=== PATIENT | male | born 1960 | race Caucasian/White ===

== ENCOUNTER 2017-10-22 06:29 | Day surgery (SDC) | payer OTHER ==
[2017-10-21 09:27] VITALS: BMI 30.5
[~2017-10-22 06:29] MED LIST: MIDAZOLAM 2 MG/2 ML VIAL IV PRN; SCOPOLAMINE 1.5MG/72HR PATCH TRANSDERM ONE; ceFAZolin IN SWFI 2 GM/20 ML SYRINGE IVP ONE
[2017-10-22] MEDS ORDERED: ACETAMINOPHEN IV (For NPO) 1,000 MG in EMPTY BAG 1 BAG IVPB ONE (06:58)
--- NOTE | 2017-10-22 07:06 | P.GSHP ---
History of Present Illness H&P Date: 10/22/17 CHIEF COMPLAINT: Inguinal hernia, bilateral HISTORY OF PRESENT ILLNESS: The patient is a 56-year-old male who presents with a history of swelling and pain along the both groin. Now he presents for repair of his inguinal hernia. PAST MEDICAL HISTORY: Please see list. PAST SURGICAL HISTORY: Please see list. MEDICATIONS: Please see list. ALLERGIES: Please see list. SOCIAL HISTORY: No illicit drug use FAMILY HISTORY: No reports of Crohn disease or ulcerative colitis. REVIEW OF ORGAN SYSTEMS: CONSTITUTIONAL: No reports of fevers or chills. No reports of weight loss despite prior attempts. GI: Denies any blood in stools or constipation. PHYSICAL EXAM: VITAL SIGNS: Stable GENERAL: Well-developed pleasant male in no acute distress. HEENT: No scleral icterus. Extraocular movements grossly intact. Moist buccal mucosa. NECK: Supple without lymphadenopathy. CHEST: Unlabored respirations. Equal bilateral excursions. CARDIOVASCULAR: Regular rate and rhythm. Distal 2+ pulses. ABDOMEN: Soft, nondistended. No peritoneal signs. Palpable defect of the bilateral groin. MUSCULOSKELETAL: No clubbing, cyanosis, or edema. ASSESSMENT: 1. Inguinal hernia, bilateral PLAN: 1. Recommend proceeding with a robotic inguinal repair with mesh with bilateral approach. 2. Benefits and risks of surgical intervention was discussed including possibility of open technique. 3. DVT prophylaxis. 4. Antibiotic prophylaxis. 5. Will need EKG prior to his surgery. Past Medical History Past Medical History: COPD, CVA/TIA, Deep Vein Thrombosis (DVT), Renal Disease Additional Past Medical History / Comment(s): States approx. 3 years ago had a clot in his lower extremity and also had a mini stroke . Has R sided weakness. History of Any Multi-Drug Resistant Organisms: None Reported Past Surgical History: No Surgical Hx Reported Additional Past Surgical History / Comment(s): Colonoscopy only. Past Anesthesia/Blood Transfusion Reactions: No Reported Reaction Smoking Status: Current every day smoker - Past Family History Mother Family Medical History: Coronary Artery Disease (CAD) Father Family Medical History: Cancer Additional Family Medical History / Comment(s): Colon Medications and Allergies Home Medications Medication Instructions Recorded Confirmed Type Acetaminophen Tab [Tylenol Tab] 325 mg PO DAILY 10/21/17 10/22/17 History Baclofen [Lioresal] 10 mg PO TID 10/21/17 10/22/17 History Clopidogrel [Plavix] 75 mg PO DAILY 10/21/17 10/22/17 History Etodolac [Lodine] 400 mg PO DAILY 10/21/17 10/22/17 History Fish Oil/Dha/Epa [Fish Oil 1,200 1 tab PO DAILY 10/21/17 10/22/17 History mg Fish Oil] Pravastatin Sodium [Pravachol] 20 mg PO DAILY 10/21/17 10/22/17 History Allergies Allergy/AdvReac Type Severity Reaction Status Date / Time cortisone Allergy Rash/Hives Verified 10/22/17 06:48 Surgical - Exam Vital Signs Temp Pulse Resp BP Pulse Ox 98.2 F 70 18 141/77 98 10/22/17 06:58 10/22/17 06:58 10/22/17 06:58 10/22/17 06:58 10/22/17 06:58
[2017-10-22] MEDS: LACTATED RINGERS 1,000 ML IV SCH ×2 (07:31→07:38)
[2017-10-22] MEDS ORDERED: LIDOCAINE 1% 20 ML VIAL (10MG/ML) FOR IV START INTRADERMA ONE ×2 (07:31→07:39)
[2017-10-22 07:48] LABS: Basophils # (A) 0.1 k/uL (0-0.2); Basophils % (A) 1 %; Eosinophils # (A) 0.3 k/uL (0-0.7); Eosinophils % (A) 3 %; HCT 46.6 % (39.0-53.0); HGB 15.9 gm/dL (13.0-17.5); Lymphocytes # (A) 2.1 k/uL (1.0-4.8); Lymphocytes % (A) 28 %; MCH 31.2 pg (25.0-35.0); MCV 91.8 fL (80.0-100.0); Mean Platelet Volume 6.9; Monocytes # (A) 0.5 k/uL (0-1.0); Monocytes % (A) 7 %; Neutrophils # (A) 4.5 k/uL (1.3-7.7); Neutrophils % (A) 59 %; Platelet Count 263 k/uL (150-450); RBC 5.07 m/uL (4.30-5.90); RDW 12.8 % (11.5-15.5); WBC 7.6 k/uL (3.8-10.6)
[2017-10-22] MEDS: HEPARIN SODIUM,PORCINE 5,000 UNIT/ML 1 ML VIAL SQ ONE ×2 (07:51→18:37)
[2017-10-22] MEDS: ONDANSETRON 4 MG/2 ML VIAL IVP ONE ×2 (07:52→18:37)
[2017-10-22 07:59] LABS: Calcium 9.7 mg/dL (8.4-10.2); Potassium 4.5 mmol/L (3.5-5.1)
[2017-10-22] MEDS ORDERED: VECURONIUM 10 MG VIAL IV ONE (08:40)
[2017-10-22] MEDS ORDERED: GLYCOPYRROLATE 0.2 MG/ML 2 ML VIAL ONE (08:40)
[2017-10-22] MEDS ORDERED: PROPOFOL 10 MG/ML 20 ML VIAL IV ONE (08:40)
[2017-10-22] MEDS ORDERED: NEOSTIGMINE 1 MG/ML 10 ML VIAL ONE (08:40)
[2017-10-22] MEDS ORDERED: HYDROmorphone (PF) 1 MG/ML ONE (08:40)
[2017-10-22] MEDS ORDERED: LIDOCAINE 1% INJ 10MG/ML (20 ML MDV) ONE (08:40)
[2017-10-22] MEDS ORDERED: fentaNYL (PF) 50 MCG/ML 2 ML AMP ONE (08:40)
[2017-10-22] MEDS ORDERED: BUPIVACAINE (PF) 0.5% 30 ML VIAL SQ ONE (09:16)
--- NOTE | 2017-10-22 10:24 | P.OP ---
Date of Procedure: 10/22/17 Description of Procedure: SURGEON: MAXIM ALVARES MD PREOPERATIVE DIAGNOSES: 1. History of bilateral inguinal hernias 2. Ischemic cardiomyopathy 3. History of transient ischemic attack 4. Chronic obstructive pulmonary disease 5. Previous history of DVTs 6. Tobacco abuse 7. Hypertensive renal disease, stage II POSTOPERATIVE DIAGNOSES: 1. History of bilateral inguinal hernias, indirect, Nyhus type III 2. Ischemic cardiomyopathy 3. History of transient ischemic attack 4. Chronic obstructive pulmonary disease 5. Previous history of DVTs 6. Tobacco abuse 7. Hypertensive renal disease, stage II OPERATION: 1. Robotic-assisted laparoscopic da Magdalena SI bilateral inguinal hernia repair with mesh, 11.4 cm ventral light ANESTHESIA: General with local anesthetic ESTIMATED BLOOD LOSS: 5 mL. Pathology: other (Bilateral inguinal hernia sac) COMPLICATIONS: None. Condition: stable Disposition: same day Operative Findings: 1. Bilateral initial inguinal hernia 2. Console time 39 minutes INDICATIONS: The patient is a 56-year-old male who presents with history of bilateral groin hernia. Laparoscopic versus open and robotic approaches were discussed. Benefits and risks including bleeding, infection and chronic groin pain were reviewed. Placement of mesh was also described. Informed consent was obtained. DESCRIPTION: In the preoperative area, the patient was marked with indelible marker along the left groin. The patient was brought to the operating room and initially laid in supine position. After general induction, the abdomen had been prepped and draped in standard sterile fashion. Ioban draping was also placed. Prior to incision, a timeout protocol was confirmed with surgical team regarding patient's name including procedures to be performed and location along the left groin. Initial positioning for the robotic assisted ports were selected whereby 20 cm superior to the target anatomy, 0 degree 5 mm laparoscopic trocar entry was performed at the left upper quadrant. The abdomen was insufflated to 15 mmHg which she had tolerated well. Diagnostic laparoscopy demonstrated no injury to bowel, viscera or mesentery. Bilateral indirect hernias were identified. Next, along the epigastrium, 12 mm robot trocar was placed. An 8-mm robotic trocar was placed under direct visualization at the right upper quadrant. The 5 mm port was exchanged for a 8 mm trocar. All trocars were positioned between 8 to 10-cm apart from each other. The Sansan Xi robot was primed, draped, prepared for docking between the legs after placing the patient in modified lithotomy position. I then went to the Sansan Si console. The human resources assistant manager was at bedside for exchange of the robot arms and equipment. Attention was brought to the bilateral groins. The right inguinal hernia sac was evaginated whereby the peritoneum was scored using Endo scissors with cautery. Once completely reduced into the abdominal cavity, the peritoneal sac of the hernia was stripped. The sac was resected and then passed off for further pathological analysis. The size of the hernia defect was 2 cm with intraoperative films obtained. Using a 2-0 VLOC, the peritoneal defect of the right inguinal hernia site was closed using a running suture. The defect was found to be completely closed with complete reduction of the right inguinal hernia was confirmed. Similarly , the left inguinal hernia was addressed with resection and closure. Final defect size was also 2 cm direct type of the left side. As an onlay, an 11.[address] mesh by [employer] was initially cut in half and entered into the abdominal cavity via the 8 mm trocar. The mesh was tacked to the pelvis using 2-0 VLOC 9-inch length sutures and performed along both sides. Intraoperative films were obtained. The robot was undocked from the patient's bedside. I then rescrubbed into the case. Insufflation was released from the abdominal cavity and all instruments were removed from the abdominal cavity. The rest of incisions were reapproximated using 4-0 Monocryl in a running subcuticular fashion. Local anesthetic was placed along the incision including for a groin block. The 12 mm fascia was oversewn using 0 Vicryl of the epigastrium. Incisions were cleansed using dilute hydrogen peroxide. Dermabond was applied to the skin. At the end of the procedure, the needle, sponge and instrument counts had been verified correct by the surgical orderly. The patient had tolerated the procedure well and was taken to the postanesthesia care unit in stable condition. Plan - Discharge Summary New Discharge Prescriptions: No Action Pravastatin Sodium [Pravachol] 20 mg PO DAILY Fish Oil/Dha/Epa [Fish Oil 1,200 mg Fish Oil] 1 tab PO DAILY Baclofen [Lioresal] 10 mg PO TID Acetaminophen Tab [Tylenol Tab] 325 mg PO DAILY Etodolac [Lodine] 400 mg PO DAILY Clopidogrel [Plavix] 75 mg PO DAILY Discharge Medication List Acetaminophen Tab [Tylenol Tab] 325 mg PO DAILY 10/21/17 [History] Baclofen [Lioresal] 10 mg PO TID 10/21/17 [History] Clopidogrel [Plavix] 75 mg PO DAILY 10/21/17 [History] Etodolac [Lodine] 400 mg PO DAILY 10/21/17 [History] Fish Oil/Dha/Epa [Fish Oil 1,200 mg Fish Oil] 1 tab PO DAILY 10/21/17 [History] Pravastatin Sodium [Pravachol] 20 mg PO DAILY 10/21/17 [History] Activity/Diet/Wound Care/Special Instructions: PT HAS ULTRAM AT HOME PER CARLEY
[2017-10-22] MEDS ORDERED: TAMSULOSIN 0.4 MG CAP.ER.24H PO STA ×2 (10:26→15:51)
[2017-10-22] MEDS: fentaNYL (PF) 50 MCG/ML 2 ML AMP IV PRN ×2 (10:33→10:58)
[2017-10-22] MEDS: HYDROmorphone 1 MG/ML 1 ML SYRINGE IVP ONE ×2 (11:09→11:19)
[2017-10-22] MEDS ORDERED: METOCLOPRAMIDE 5 MG/ML 2 ML VIAL IVP ONE (12:10)
[2017-10-22] MEDS ORDERED: diphenhydrAMINE 50 MG/ML 1 ML VIAL IVP ONE (12:57)
[2017-10-22] MEDS ORDERED: ONDANSETRON 4 MG/2 ML VIAL IVP ONE (17:10)
--- NOTE | 2017-10-22 19:31 | P.PN ---
Subjective Progress Note Date: 10/22/17 Patient is status post robotic bilateral inguinal hernia. He continues to have severe post op nausea and vomiting including urinary retention. Pain is controlled. Objective - Vital Signs Vital signs: Vital Signs Temp 97.8 F 10/22/17 18:00 Pulse 66 10/22/17 18:00 Resp 17 10/22/17 18:00 BP 134/65 10/22/17 18:00 Pulse Ox 97 10/22/17 18:00 Intake & Output 10/22/17 10/22/17 10/23/17 06:59 18:59 06:59 Intake Total 1500 Output Total 505 Balance 995 Weight 75.75 kg Intake: IV 1500 Output: Urine 500 Estimated Blood Loss 5 - Exam GENERAL: Well developed and in no acute distress. Pleasant. HEENT: No sclera icterus. Extraocular movements grossly intact. Moist buccal mucosa. Head is atraumatic, normocephalic. Hears conversational speech. No nasal drainage. NECK: Supple without lymphadenopathy. No JV distention. CHEST: Non-labored respirations and equal bilateral excursions. CARDIOVASCULAR: Regular rate and rhythm. Palpable 2+ radial pulses. ABDOMEN: Soft. Nondistended. Incisions clean dry and intact MUSCULOSKELETAL: No clubbing, cyanosis or edema. NEUROLOGIC: No focal or lateralizing signs. PSYCH: Appropriate affect. Alert and oriented to person, place and time. SKIN: Good skin turgor. Well perfused. - Labs CBC & Chem 7: 10/22/17 07:30 10/22/17 07:30 Labs: Abnormal Lab Results - Last 24 Hours (Table) 10/22/17 Range/Units 07:30 Glucose 105 H (74-99) mg/dL Assessment and Plan (1) Urinary retention with incomplete bladder emptying Status: Acute Code(s): R33.9 - RETENTION OF URINE, UNSPECIFIED SNOMED Code(s ): 656357713 (2) Bilateral inguinal hernia Status: Acute Code(s): K40.20 - BI INGUINAL HERNIA, W/O OBST OR GANGRENE, NOT SPCF RECUR SNOMED Code(s): 21350154 (3) Ischemic cardiomyopathy Status: Acute Code(s): I25.5 - ISCHEMIC CARDIOMYOPATHY SNOMED Code(s): 389617309 (4) Postoperative nausea and vomiting Status: Acute Code(s): R11.2 - NAUSEA WITH VOMITING, UNSPECIFIED; Z98.890 - OTHER SPECIFIED POSTPROCEDURAL STATES SNOMED Code(s): 8083075 Plan: 1. Discharge held. 2. Continue Flomax and anti-emetics. 3. Straight catheterization as needed.
[2017-10-22] MEDS: BACLOFEN 10 MG TAB PO SCH (21:36)
[2017-10-22] MEDS: traMADol 50 MG TAB PO SCH (21:36)
[2017-10-22] MEDS: KETOROLAC 30 MG/ML 1 ML VIAL IVP SCH (23:15)
[2017-10-22 23:47] VITALS: RESP 16
[2017-10-23] MEDS: ONDANSETRON 4 MG/2 ML VIAL IVP SCH ×2 (01:07→06:01)
[2017-10-23] MEDS: METOCLOPRAMIDE 5 MG/ML 2 ML VIAL IVP SCH ×2 (01:07→06:01)
[2017-10-23] MEDS: KETOROLAC 30 MG/ML 1 ML VIAL IVP SCH (06:01)
[2017-10-23 06:42] VITALS: BP 92/53; PULSE 73; TEMP 98.1
[2017-10-23] MEDS ORDERED: TAMSULOSIN 0.4 MG CAP.ER.24H PO SCH (08:30)
[2017-10-23] MEDS: BACLOFEN 10 MG TAB PO SCH (08:50)
[2017-10-23] MEDS: traMADol 50 MG TAB PO SCH (08:51)
[2017-10-23] MEDS ORDERED: ETODOLAC 400 MG TAB PO SCH (09:00)
[2017-10-23] MEDS ORDERED: ACETAMINOPHEN TAB 325 MG TAB PO SCH (09:00)
--- NOTE | 2017-10-23 11:02 | P.PN ---
Subjective Progress Note Date: 10/23/17 Patient reports nausea and vomiting is now resolved. He is able to urinate on his own. Objective - Vital Signs Vital signs: Vital Signs Temp 98.1 F 10/23/17 05:00 Pulse 73 10/23/17 05:00 Resp 16 10/23/17 05:00 BP 92/53 10/23/17 05:00 Pulse Ox 94 L 10/23/17 05:00 Intake & Output 10/22/17 10/23/17 10/23/17 18:59 06:59 18:59 Intake Total 1500 230 Output Total 505 Balance 995 230 Weight 75.75 kg Intake: IV 1500 Intake, IV Titration 230 Amount Lactated Ringers 1,000 ml 230 @ 20 mls/hr IV .Q24H NINA Rx#:[id number] Output: Urine 500 Estimated Blood Loss 5 Other: Voiding Method Toilet # Voids 3 - Exam GENERAL: Well developed and in no acute distress. Pleasant. HEENT: No sclera icterus. Extraocular movements grossly intact. Moist buccal mucosa. Head is atraumatic, normocephalic. Hears conversational speech. No nasal drainage. NECK: Supple without lymphadenopathy. No JV distention. CHEST: Non-labored respirations and equal bilateral excursions. CARDIOVASCULAR: Regular rate and rhythm. Palpable 2+ radial pulses. ABDOMEN: Soft. Nondistended. Incisions clean dry and intact MUSCULOSKELETAL: No clubbing, cyanosis or edema. NEUROLOGIC: No focal or lateralizing signs. PSYCH: Appropriate affect. Alert and oriented to person, place and time. SKIN: Good skin turgor. Well perfused. - Labs CBC & Chem 7: 10/22/17 07:30 10/22/17 07:30 Assessment and Plan (1) Bilateral inguinal hernia Status: Acute Code(s): K40.20 - BI INGUINAL HERNIA, W/O OBST OR GANGRENE, NOT SPCF RECUR SNOMED Code(s): 95691074 (2) Ischemic cardiomyopathy Status: Acute Code(s): I25.5 - ISCHEMIC CARDIOMYOPATHY SNOMED Code(s): 677306502 (3) Postoperative nausea and vomiting Status: Acute Code(s): R11.2 - NAUSEA WITH VOMITING, UNSPECIFIED; Z98.890 - OTHER SPECIFIED POSTPROCEDURAL STATES SNOMED Code(s): 6425442 (4) Urinary retention with incomplete bladder emptying Status: Acute Code(s): R33.9 - RETENTION OF URINE, UNSPECIFIED SNOMED Code(s ): 415669733 Plan: 1. Discharge instructions reviewed with patient and family.
== END 2017-10-23 11:25 | disposition home or self-care (01) ==
LOC: OR 06:29 → 5MS5E 17:34 → OR 10-23 11:25
PROVIDERS: ATTEND Surgery Plastic and Reconstructive Surgery
DX: K40.20 Bilateral inguinal hernia, without obstruction or gangrene, not specified as recurrent (principal); I25.5 Ischemic cardiomyopathy; I69.851 Hemiplegia and hemiparesis following other cerebrovascular disease affecting right dominant side; J44.9 Chronic obstructive pulmonary disease, unspecified; Z86.718 Personal history of other venous thrombosis and embolism; I12.9 Hypertensive chronic kidney disease with stage 1 through stage 4 chronic kidney disease, or unspecified chronic kidney disease; F17.210 Nicotine dependence, cigarettes, uncomplicated; N18.2 Chronic kidney disease, stage 2 (mild); Z82.49 Family history of ischemic heart disease and other diseases of the circulatory system; R11.2 Nausea with vomiting, unspecified; R33.8 Other retention of urine; Z79.02 Long term (current) use of antithrombotics/antiplatelets; Z79.899 Other long term (current) drug therapy; Z88.8 Allergy status to other drugs, medicaments and biological substances
CPT/HCPCS: 49650; S2900; 80048; 85025; 88302; 93005